=== PATIENT | female | born 1980 | race American Indian/Alaskan Native ===

== ENCOUNTER 2017-11-04 14:22 | Outpatient (CLI) | payer MEDICAID ==
--- NOTE | 2017-11-04 23:16 | XRay Report ---
FINAL REPORT EXAM: XR SHOULDER 2+V RT HISTORY: RIGHT SHOULDER PAIN TECHNIQUE: Three views right shoulder PRIORS: None. FINDINGS: No fractures are identified. No dislocation seen. The acromioclavicular joint is intact. Adjacent bony and soft tissue structures are unremarkable. IMPRESSION: Negative shoulder series
--- NOTE | 2017-11-05 16:23 | Mammography Report ---
BILATERAL DIGITAL AUGMENTED SCREENING MAMMOGRAM with CAD: 11/04/17 14:22:00 CLINICAL: Routine screening. COMPARISON:None available. FINDINGS: Screening views with and without implant displacement demonstrate heterogeneously dense breasts, which may obscure small masses. The breast parenchyma is asymmetric in each breast. There is more dense breast tissue and greater retroareolar breast tissue on the right than on the left. Relatively dense breast tissue on the left is more lateral and there is less retroareolar breast tissue on the left. No architectural distortion or suspicious calcifications. Intact subglandular implants. IMPRESSION: Bilateral asymmetric breast tissue requiring further imaging. BI-RADS CATEGORY: 0 -- Needs Additional Imaging RECOMMENDATION: Recall for bilateral breast ultrasound. ACR BI-RADS MAMMOGRAPHIC CODES: 0 = Needs additional imaging evaluation; 1 = Negative; 2 = Benign; 3 = Probably benign; 4 = Suspicious; 5 = Malignant; 6 = Known biopsy-proven malignancy COMMENT: 1. Dense breast tissue, i.e., adenosis, fibrocystic changes, etc., may obscure an underlying neoplasm. 2. Approximately 10% of cancers are not detected with mammography. 3. A negative mammography report should not delay biopsy if a clinically suspicious mass is present. COMMENT: Patient follow-up letters are generated via our [employer] application.
== END 2017-11-04 14:23 | disposition home or self-care (01) ==
LOC: SPVWC 14:22
PROVIDERS: ATTEND Advanced Practice Midwife
DX: Z12.31 Encounter for screening mammogram for malignant neoplasm of breast (principal); M25.511 Pain in right shoulder; M79.601 Pain in right arm; Z98.82 Breast implant status
CPT/HCPCS: 77067

== ENCOUNTER 2018-01-06 13:53 | Outpatient (CLI) | payer MEDICAID ==
--- NOTE | 2018-01-06 15:09 | Ultrasound Report ---
BILATERAL BREAST ULTRASOUND: 01/06/18 13:53:00 CLINICAL: Breast implants with bilateral asymmetries on the screening mammogram. COMPARISON: 11/04/17 screening mammogram FINDINGS: Ultrasound of both breasts(including all four quadrants and the retroareolar area) was performed and demonstrated no mass or shadowing correlate with bilateral parenchymal asymmetries. A few benign cysts. A right cyst at 2 o'clock 7 cm from the nipple measures 4 x 3 x 3 mm. A right cyst at 7 o'clock 3 cm from the nipple measures 4 x 2 x 5 mm and a right cyst at 9 o'clock 6 cm from the nipple measures 3 x 1 x 2 mm. A left cyst at 5 o'clock 6 cm from the nipple measures 5 x 2 x 3 mm. IMPRESSION: Bilateral benign cysts and no suspicious findings. BI-RADS 2 - - Benign RECOMMENDATION: Routine mammographic screening based on ACS guidelines.
== END 2018-01-06 13:54 | disposition home or self-care (01) ==
LOC: SPVWC 13:53
PROVIDERS: ATTEND Advanced Practice Midwife
DX: N60.01 Solitary cyst of right breast (principal); N60.02 Solitary cyst of left breast; Z98.82 Breast implant status

== ENCOUNTER 2020-09-17 14:26 | Outpatient (CLI) | payer OTHER ==
--- NOTE | 2020-09-18 09:17 | Mammography Report ---
DIGITAL SCREENING MAMMOGRAM WITH CAD, 09/17/2020 CLINICAL INFORMATION / INDICATION: Routine screening mammography. SCREENING WITH INPLANTS TECHNIQUE: Digital bilateral 2D mammography was obtained in the craniocaudal and mediolateral obliqu e projections. This examination was interpreted with the benefit of Computer-Aided Detection analysis . COMPARISON: Prior mammogram 11/04/2017 FINDINGS: Breast Density: The breasts are heterogeneously dense, which may obscure small masses. No dominant mass, suspicious calcifications, or architectural distortion in either breast. There are bilateral prepectoral silicone implants. There has been no significant change compared with the prior examination. IMPRESSION: No mammographic evidence of malignancy. Follow up recommendation: Routine yearly BI-RADS Category 1: Negative. A "normal" or negative report should not discourage follow up or biopsy of a clinically significant f inding. A written summary of these findings will be mailed to the patient. The patient will be entered into a mammography reporting system which will generate a reminder letter for the patient's next appointmen t at the appropriate interval. The [employer] recommends yearly mammograms starting at age 40 and continuing as l jennifer as a woman is in good health. Breast MRI is recommended for women with an approximate 20-25% or greater lifetime risk of breast cancer, including women with a strong family history of breast or ova titus cancer or who have been treated for Hodgkin's disease. Signer Name: Chandrika Banda MD Signed: 09/18/2020 9:13 AM Workstation Name: [id number]
== END 2020-09-17 14:27 | disposition home or self-care (01) ==
LOC: SPVWC 14:26
PROVIDERS: ATTEND Internal Medicine
DX: Z12.31 Encounter for screening mammogram for malignant neoplasm of breast (principal)
CPT/HCPCS: 77067